=== PATIENT | female | born 1955 | race Caucasian/White ===

== ENCOUNTER 2017-11-07 05:32 | Emergency (ER) | payer OTHER ==
[~2017-11-07] VITALS: Ht 165.1 cm; Wt 66.2 kg
[~2017-11-07 05:32] MED LIST: LEVSOD100 PO; Norco 5-325 Ta1 EACH PO; Pepcid40 MG PO
[2017-11-07] MEDS ORDERED: T3/T4 SR PO (05:57)
[2017-11-07] MEDS ORDERED: TRIIODO-L-THYRONINE PO (05:58)
[2017-11-07 06:05] LABS: BASOPHILS ABSOLUTE AUTO 0.03 K/mm3 (0.00-0.23); BASOPHILS PERCENT AUTO 0 % (0-2); EOSINOPHILS ABSOLUTE AUTO 0.29 K/mm3 (0.00-0.68); EOSINOPHILS PERCENT AUTO 4 % (0-6); Hematocrit 41.4 % (33.0-51.0); Hemoglobin 13.4 g/dL (11.5-16.0); IMMATURE GRAN ABSOLUTE AUTO 0.01 K/mm3 (0.00-0.10); IMMATURE GRAN PERCENT AUTO 0 % (0-1); LYMPHOCYTES ABSOLUTE AUTO 2.43 K/mm3 (0.84-5.20); LYMPHOCYTES PERCENT AUTO 34 % (21-46); MONOCYTES PERCENT AUTO 9 % (4-13); Mean Corpuscular HGB 29.9 pg (26.0-34.0); Mean Corpuscular HGB Conc 32.4 g/dL (31.5-36.5); Mean Corpuscular Volume 92 fL (80-100); Mean Platelet Volume 9.8 fL (9.1-12.4); NEUTROPHILS PERCENT AUTO 53 % (41-73); Platelet Count 265 K/mm3 (150-400); RDW Coefficient Variation 13.6 % (11.7-14.2); RDW Standard Deviation 45.8 fL (35.1-46.3); Red Blood Cell Count 4.48 M/mm3 (3.80-5.20); White Blood Cell Count 7.06 K/mm3 (4.00-11.30)
[2017-11-07 06:24] LABS: Alanine Aminotransfer (ALT/SGP 48 U/L (12-78); Albumin, Blood 3.7 g/dL (3.4-5.0); Alk Phos 59 U/L (50-136); Anion Gap 7 mmol/L (6-16); Aspartate Aminotrans (AST/SGOT 33 U/L (12-37); Bilirubin, Total 0.2 mg/dL (0.1-1.0); Blood Urea Nitrogen 13 mg/dL (8-24); Bun/Creatinine Ratio 14.1 (12.0-20.0); CO2, Blood 29 mmol/L (21-32); Chloride, Blood 105 mmol/L (98-108); Creatinine, Blood 0.92 mg/dL (0.40-1.00); Globulin, Blood 3.7 g/dL (2.2-4.0); Glomerular Filtration Rate >60 (60-); Glucose, Blood 102 mg/dL (70-99); Potassium, Blood 3.5 mmol/L (3.5-5.5); Sodium, Blood 141 mmol/L (136-145); Total Protein, Blood 7.4 g/dL (6.4-8.2); Troponin I <0.015 ng/mL (0.000-0.040)
== END 2017-11-07 06:58 | disposition home or self-care (01) ==
LOC: ER 05:32
PROVIDERS: Emergency Medicine
DX: K85.90 Acute pancreatitis without necrosis or infection, unspecified (principal); R07.9 Chest pain, unspecified; Z88.0 Allergy status to penicillin; Z88.5 Allergy status to narcotic agent; Z88.6 Allergy status to analgesic agent; Z88.8 Allergy status to other drugs, medicaments and biological substances; Z79.899 Other long term (current) drug therapy
CPT/HCPCS: 36415; 71046; 80053; 83690; 83880; 84484; 85025; 93005; 93010; 99284

== ENCOUNTER 2018-01-30 07:49 | Day surgery (SDC) | payer MEDICARE, OTHER ==
[~2018-01-30] VITALS: Ht 165.1 cm; Wt 65.8 kg
[~2018-01-30 07:49] MED LIST changes: +T3/T4 SR PO; +TRIIODO-L-THYRONINE PO
== END 2018-01-30 10:33 | disposition home or self-care (01) ==
LOC: ORSCSDS 07:49
PROVIDERS: Internal Medicine Gastroenterology
PROC: 0DBN8ZX Excision of Sigmoid Colon, Via Natural or Artificial Opening Endoscopic, Diagnostic (ICD-10-PCS; principal; 2018-01-30 09:00)
PROC: 0DBL8ZX Excision of Transverse Colon, Via Natural or Artificial Opening Endoscopic, Diagnostic (ICD-10-PCS; principal; 2018-01-30 09:00)
PROC: 0DB68ZX Excision of Stomach, Via Natural or Artificial Opening Endoscopic, Diagnostic (ICD-10-PCS; principal; 2018-01-30 09:00)
PROC: 0DBK8ZX Excision of Ascending Colon, Via Natural or Artificial Opening Endoscopic, Diagnostic (ICD-10-PCS; principal; 2018-01-30 09:00)
PROC: 0DB98ZX Excision of Duodenum, Via Natural or Artificial Opening Endoscopic, Diagnostic (ICD-10-PCS; principal; 2018-01-30 09:00)
DX: R10.11 Right upper quadrant pain (principal); D12.2 Benign neoplasm of ascending colon; D12.3 Benign neoplasm of transverse colon; D12.5 Benign neoplasm of sigmoid colon; K44.9 Diaphragmatic hernia without obstruction or gangrene; R11.0 Nausea; K64.4 Residual hemorrhoidal skin tags; E07.9 Disorder of thyroid, unspecified; R19.4 Change in bowel habit; Z87.891 Personal history of nicotine dependence
CPT/HCPCS: 88305; 88342

== ENCOUNTER 2018-05-08 20:01 | Emergency (ER) | payer MEDICARE, OTHER ==
[~2018-05-08] VITALS: Ht 162.6 cm; Wt 144.0 kg
== END 2018-05-08 21:48 | disposition home or self-care (01) ==
LOC: ER 20:01
DX: S90.812A Abrasion, left foot, initial encounter (principal); S90.512A Abrasion, left ankle, initial encounter; M79.675 Pain in left toe(s); Z88.1 Allergy status to other antibiotic agents; Z88.0 Allergy status to penicillin; Z88.6 Allergy status to analgesic agent; Z88.5 Allergy status to narcotic agent; Z88.8 Allergy status to other drugs, medicaments and biological substances; Z79.899 Other long term (current) drug therapy; Z87.891 Personal history of nicotine dependence; W18.41XA Slipping, tripping and stumbling without falling due to stepping on object, initial encounter
CPT/HCPCS: 99281

== ENCOUNTER 2018-12-03 16:13 | Emergency (ER) | payer OTHER ==
[~2018-12-03] VITALS: Ht 165.1 cm; Wt 63.5 kg
[2018-12-03 17:21] LABS: BASOPHILS ABSOLUTE AUTO 0.07 K/mm3 (0.00-0.23); BASOPHILS PERCENT AUTO 1 % (0-2); EOSINOPHILS PERCENT AUTO 2 % (0-6); Hematocrit 44.4 % (33.0-51.0); Hemoglobin 14.2 g/dL (11.5-16.0); IMMATURE GRAN ABSOLUTE AUTO 0.02 K/mm3 (0.00-0.10); IMMATURE GRAN PERCENT AUTO 0 % (0-1); LYMPHOCYTES ABSOLUTE AUTO 2.06 K/mm3 (0.84-5.20); LYMPHOCYTES PERCENT AUTO 20 % (21-46); MONOCYTES ABSOLUTE AUTO 0.68 K/mm3 (0.16-1.47); MONOCYTES PERCENT AUTO 7 % (4-13); Mean Corpuscular HGB 29.7 pg (26.0-34.0); Mean Corpuscular Volume 93 fL (80-100); Mean Platelet Volume 10.2 fL (9.1-12.4); NEUTROPHILS ABSOLUTE AUTO 7.05 K/mm3 (1.96-9.15); NEUTROPHILS PERCENT AUTO 70 % (41-73); Platelet Count 306 K/mm3 (150-400); RDW Standard Deviation 44.6 fL (35.1-46.3); Red Blood Cell Count 4.78 M/mm3 (3.80-5.20); White Blood Cell Count 10.08 K/mm3 (4.00-11.30)
[2018-12-03 17:47] LABS: Alanine Aminotransfer (ALT/SGP 62 U/L (12-78); Albumin, Blood 4.1 g/dL (3.4-5.0); Alk Phos 92 U/L (50-136); Anion Gap 7 mmol/L (6-16); Aspartate Aminotrans (AST/SGOT 33 U/L (12-37); Bilirubin, Total 0.4 mg/dL (0.1-1.0); Blood Urea Nitrogen 11 mg/dL (8-24); Bun/Creatinine Ratio 12.8 (12.0-20.0); CO2, Blood 29 mmol/L (21-32); Calcium, Blood 9.6 mg/dL (8.5-10.1); Chloride, Blood 102 mmol/L (98-108); Creatinine, Blood 0.86 mg/dL (0.40-1.00); Globulin, Blood 4.2 g/dL (2.2-4.0); Glomerular Filtration Rate >60 (60-); Glucose, Blood 93 mg/dL (70-99); Potassium, Blood 3.4 mmol/L (3.5-5.5); Sodium, Blood 138 mmol/L (136-145); Total Protein, Blood 8.3 g/dL (6.4-8.2); Troponin I <0.015 ng/mL (0.000-0.040)
[2018-12-03] MEDS ORDERED: Prednisone20 MG PO (20:51)
== END 2018-12-03 21:04 | disposition home or self-care (01) ==
LOC: ER 16:13
PROVIDERS: Physician Assistant
DX: R07.9 Chest pain, unspecified (principal); Z79.899 Other long term (current) drug therapy; Z88.1 Allergy status to other antibiotic agents; Z88.0 Allergy status to penicillin; Z88.6 Allergy status to analgesic agent; Z88.5 Allergy status to narcotic agent; Z88.8 Allergy status to other drugs, medicaments and biological substances
CPT/HCPCS: 36415; 71046; 80053; 84484; 85025; 93005; 93010; 99284-25; J1100

== ENCOUNTER 2021-09-18 23:55 | Emergency (ER) | payer MEDICARE, OTHER ==
[~2021-09-18] VITALS: Ht 165.1 cm; Wt 65.8 kg
[~2021-09-18 23:55] MED LIST changes: +Prednisone20 MG PO
[2021-09-19] MEDS ORDERED: ACYC800 PO (02:53)
== END 2021-09-19 03:15 | disposition home or self-care (01) ==
LOC: ER 23:55
DX: B02.9 Zoster without complications (principal); Z88.1 Allergy status to other antibiotic agents; Z88.0 Allergy status to penicillin; Z88.6 Allergy status to analgesic agent; Z88.8 Allergy status to other drugs, medicaments and biological substances; Z87.891 Personal history of nicotine dependence
CPT/HCPCS: 99283; A9270

== ENCOUNTER 2022-08-30 09:28 | Inpatient (IN) | payer MEDICARE, OTHER ==
[~2022-08-30] VITALS: Ht 165.1 cm; Wt 70.3 kg
[~2022-08-30 09:28] MED LIST changes: +ACYC800 PO
[2022-08-30] MEDS ORDERED: [UNRECOGNIZED DRUG - REMARK] (12:16)
[2022-08-30] MEDS ORDERED: [UNRECOGNIZED DRUG - REMARK] (12:17)
[2022-08-30 15:36] LABS: Source, Urine Foley catheter
[2022-08-30 15:46] LABS: Appearance, Urine Clear (Clear); Bilirubin, Urine Neg (Neg); Blood, Urine 1+ (Neg); Color, Urine Yellow (P-Yellow); Glucose Qualitative, Urine Neg (Neg); Ketones, Urine 3+ (Neg); Leukocyte Esterase, Urine Neg (Neg); Nitrite, Urine Neg (Neg); Protein, Urine Neg (Neg); Specific Gravity, Urine 1.015 (1.003-1.022); Urobilinogen, Urine NORM (Normal)
[2022-08-30 15:49] LABS: Hemoglobin 13.5 g/dL (11.5-16.0); Mean Corpuscular HGB 28.6 pg (26.0-34.0); Mean Corpuscular HGB Conc 32.9 g/dL (31.5-36.5); Mean Corpuscular Volume 87 fL (80-100); Mean Platelet Volume 9.8 fL (9.1-12.4); Platelet Count 267 K/mm3 (150-400); RDW Coefficient Variation 13.2 % (11.7-14.2); RDW Standard Deviation 42.5 fL (35.1-46.3); Red Blood Cell Count 4.72 M/mm3 (3.80-5.20); White Blood Cell Count 14.04 K/mm3 (4.00-11.30)
[2022-08-30 15:57] LABS: White Blood Cells, Urine 0-2 /hpf (0-5)
[2022-08-30 15:58] LABS: Bacteria Few /hpf; Renal Epithelial Rare /hpf (0-Rare); Squamous Epithelial Cells Not Seen /hpf (Few)
[2022-08-30 16:25] LABS: Prothrombin Time Results 10.5 Sec (9.7-11.5)
[2022-08-30 16:31] LABS: Bun/Creatinine Ratio 25.1 (12.0-20.0); Calcium, Blood 9.4 mg/dL (8.5-10.1); Creatinine, Blood 0.72 mg/dL (0.40-1.00); Potassium, Blood 3.5 mmol/L (3.5-5.5)
[2022-08-30 17:22] LABS: Influenza A, PCR NEGATIVE (NEGATIVE); Influenza B, PCR NEGATIVE (NEGATIVE); Resp Syncytial Virus, PCR NEGATIVE (NEGATIVE); SARS-Cov-2 (COVID-19) PCR, MMC NEGATIVE (NEGATIVE)
--- NOTE | 2022-08-30 18:12 | NUR ---
SHIFT SUMMARY PT A&OX4, VSS/RA, MOE PO, MUNOZ PATENT & DRAINING YELLOW URINE/STAT LOCK ON/OFF FLOOR, PAIN MANAGED PER EMAR. PLAN FOR NPO AT MIDNIGHT AND RIGHT HIP SURGERY TOMORROW. AT BEDSIDE. WILL REPORT TO ONCOMING NOC RN.
--- NOTE | 2022-08-31 05:09 | NUR ---
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 PT AAOX4 AND COOPERATIVE. ADMITTED FOR R FEMUR FX, PT TO HAVE SURGERY LATER TODAY. NPO SINCE MIDNIGHT. R LEG TO TRACTION. MEDICATED Q2-3 HOURS WITH FENTANYL 50 MCG IV FOR HIP PAIN. PT HAS SLEPT OFF/ON THROUGH THE NIGHT. PT HAD RECIEVED HYDROCODONE DURING DAY SHIFT AND A FEW HOURS LATER PT WAS REPORTING SOME REDNESS AND ITCHING TO HER ABD AND BACK. ASSESSED AREA AND SOME MILD REDNESS NOTED BUT NO HIVES. PT THEN STATED SHE HAD BEEN HAVING SOME ITCHYNESS TO THE AREA FOR SEVERAL DAYS DUE TO "SOME BITES OR SOMETHING". REASSESSED AREA AN HOUR LATER AND PT DENIED SYMPTOMS SO UNSURE IF ACTUAL REACTION TO HYDROCODONE, WILL PASS ON TO DAY SHIFT RN. VSS, WILL CONTINUE TO MONITOR.
--- NOTE | 2022-08-31 12:04 | NUR ---
BROUGHT TO [facility] ADMISSION TO UNIT STARTED. ANNESTHESIOLOGIST WAS IN ROOM TALKIGN WITH PATIENT.
--- NOTE | 2022-08-31 12:39 | NUR ---
GLASSES TAKEN TO ROOM 214
--- NOTE | 2022-08-31 13:21 | NUR ---
08/31/22 1321 Star Marrero EMPTIED AT START OF CASE APPROXIMATELY 700CC OF MEDIUM YELLOW CLEAR URINE.
--- NOTE | 2022-08-31 16:08 | NUR ---
PT ARRIVED FROM PACU. PT REPORTS THAT PAIN IS MUCH MORE BEARABLE AT THIS TIME. SHE REPORTS FULL SENSATION TO LOWER EXTREMETIES AND CAN WIGGLE HER TOES. CURRENTLY SITTING UP DRINKING TEA AND WATER. TOLERATING PO WELL, DENIES NAUSEA. ON 3L NASAL CANULA, WILL WEAN DOWN TOLERATED SATS CURRENTLY 97%. HAS A HISTORY OF DESATING WHEN ASLEEP AFTER MEDICATION. DRESSING TO R HIP CDI.
--- NOTE | 2022-08-31 17:31 | NUR ---
NO ACUTE CHANGES SINCE ARRIVAL FROM PACU. PT REMAINS FREE FROM PAIN AT THIS TIME. MUNOZ PATENT AND DRAINING. PT TOLERATING PO WELL. DENIES FURTHER NEEDS.
--- NOTE | 2022-09-01 03:36 | NUR ---
MEAT PACKAGER SUMMARY POD 0 R TOTAL HIP REPAIR. PT HAS DONE VERY WELL POST OP, REPORTING NO PAIN THUS FAR. PT ABLE TO SIT UP TO SIDE OF BED AND DO SOME ROM EXERCISES WITH ARCHIVIST POLITICAL HISTORY AT START OF SHIFT. PT HAS RESTED COMFORTABLY THROUGH MOST OF THE NIGHT. VSS, WILL CONTINUE TO MONITOR.
[2022-09-01 09:46] LABS: Hematocrit 34.1 % (33.0-51.0); Mean Corpuscular HGB 28.8 pg (26.0-34.0); Mean Corpuscular HGB Conc 32.3 g/dL (31.5-36.5); Mean Corpuscular Volume 89 fL (80-100); Mean Platelet Volume 10.1 fL (9.1-12.4); Platelet Count 195 K/mm3 (150-400); RDW Coefficient Variation 13.6 % (11.7-14.2); RDW Standard Deviation 44.9 fL (35.1-46.3); Red Blood Cell Count 3.82 M/mm3 (3.80-5.20); White Blood Cell Count 12.95 K/mm3 (4.00-11.30)
[2022-09-01 10:06] LABS: Albumin, Blood 2.6 g/dL (3.4-5.0); Anion Gap 6 mmol/L (6-16); Blood Urea Nitrogen 12 mg/dL (8-24); Bun/Creatinine Ratio 16.7 (12.0-20.0); CO2, Blood 26 mmol/L (21-32); Calcium, Blood 8.5 mg/dL (8.5-10.1); Chloride, Blood 108 mmol/L (98-108); Creatinine, Blood 0.72 mg/dL (0.40-1.00); Glomerular Filtration Rate 90 (60-); Glucose, Blood 147 mg/dL (70-99); Phosphorus, Blood 1.9 mg/dL (2.5-4.9); Potassium, Blood 3.7 mmol/L (3.5-5.5); Sodium, Blood 140 mmol/L (136-145)
--- NOTE | 2022-09-01 13:24 | NUR ---
PT C/O BURNING/PAIN IN R WRIST IV SITE. ATTEMPTED TO FLUSH IV, PT DID NOT TOLERATE WELL, SCREAMED THAT PAIN WORSENED WITH FLUSH. IV REMOVED.
--- NOTE | 2022-09-01 18:59 | NUR ---
SHIFT SUMMARY POD1 R SANDRA, A/OX4, VSS THOUGH EVENING BP WAS SOFT THOUGH PT LIDIA DIZZINESS/LIGHTHEADEDNESS, ENCOURAGED TO DRINK WATER SHE WAS PRESENTING WITH MILD DEHYDRATION (DECREASED SKIN TURGUR AND DRY MUCUS MEMBRANES). PAIN MANAGED PER EMAR THOUGH PT REPORTS ITCHING WHEN TAKING PAIN MEDICATIONS. NO ACUTE EVENTS THIS SHIFT, CALL LIGHT IN REACH, REPORT GIVEN TO NOC NR.
--- NOTE | 2022-09-02 04:55 | NUR ---
SHIFT SUMMARY A/O X4- POD 2 R TOTAL HIP- INCISION C/D/I. VITAL SIGNS STABLE. PAIN MANAGED W/ PO PAIN MEDICATION. MUNOZ TO BE REMOVED THIS AM, PASSING STOOL. TOLERATING PO INTAKE. UP TO BSC W/ ONE ASSIST, FWW, AND GB. NO ACUTE CHANGES THROUGHOUT SHIFT. WILL CONTINUE TO MONITOR AND REPORT TO ONCOMING RN.
--- NOTE | 2022-09-02 09:24 | NUR ---
PAIN PREMEDICATED FOR PAIN SO PATIENT CAN WORK WITH PT/OT
[2022-09-02] MEDS ORDERED: ACET325 PO (13:02)
[2022-09-02] MEDS ORDERED: HYDR1TAB94 PO (13:03)
[2022-09-02] MEDS ORDERED: POLYETHYLENE G500 G1 PO (13:03)
[2022-09-02] MEDS ORDERED: PHOSPHO-TRIN K500 MG PO (13:04)
[2022-09-02] MEDS ORDERED: XARELTO20 MG PO (13:04)
[2022-09-02] MEDS ORDERED: BENADRYL25 MG PO (13:05)
--- NOTE | 2022-09-02 15:36 | NUR ---
SHIFT SUMMARY POD2 R SANDRA, A/OX4,VSS, TOLERATING PO, AMBULATING, PAIN WELL MANAGED, VOIDING AND PASSING STOOL. DISCUSSED DISCHARGE INFORMATION WITH THE PATIENT INCLUDING HOME CARE, MEDICATIONS, AND FOLLOW UP. IV ACCESS REMVOED AND NO DEVICES IN PLACE AT TIME OF DC. PT ESCORTED OUT VIA WC TO GO HOME.
== END 2022-09-02 14:30 | disposition home or self-care (01) | DRG 522 ==
LOC: ER 09:28 → SURS 12:28
PROVIDERS: Internal Medicine; Nurse Practitioner Acute Care; Orthopaedic Surgery; Physician Assistant; ADMIT Internal Medicine
PROC: 0SR90JZ Replacement of Right Hip Joint with Synthetic Substitute, Open Approach (ICD-10-PCS; principal; 2022-08-31 12:30)
DX: S72.011A Unspecified intracapsular fracture of right femur, initial encounter for closed fracture (principal); W18.30XA Fall on same level, unspecified, initial encounter; E03.9 Hypothyroidism, unspecified; E83.39 Other disorders of phosphorus metabolism; M81.0 Age-related osteoporosis without current pathological fracture; Z90.49 Acquired absence of other specified parts of digestive tract; Z98.890 Other specified postprocedural states; Z96.651 Presence of right artificial knee joint; Z88.5 Allergy status to narcotic agent; Z88.6 Allergy status to analgesic agent; Z88.8 Allergy status to other drugs, medicaments and biological substances; Z88.0 Allergy status to penicillin; Z79.899 Other long term (current) drug therapy; Z86.16 Personal history of COVID-19; J98.9 Respiratory disorder, unspecified; M54.9 Dorsalgia, unspecified
CPT/HCPCS: 0241U; 36415; 51702; 72070; 72100; 72170; 73502; 73552; 80048; 80069; 81001; 84443; 85027; 85610; 94762; 97116; 97162; 97166; 97530; 97535; A9270; C1776; J0171; J0690; J0735; J1100; J1170; J1200; J1885; J2250; J2370; J2405; J2704; J2795; J3010; J7030; J7120